=== PATIENT | female | born 1955 | race African-American/Black ===

== ENCOUNTER → 2020-07-27 | Outpatient (CLI) | payer SELFPAY ==
[2020-07-27 14:04] LABS: BASOPHILS % (AUTO) 1 % (0-1); EOSINOPHILS % (AUTO) 1 % (1-7); LYMPHOCYTES % (AUTO) 30 % (22-44); MEAN CORPUSCULAR HEMOGLOBIN 22.9 pg (27.0-34.8); MEAN CORPUSCULAR HGB CONC 31.3 g/dL (32.4-35.8); MEAN PLATELET VOLUME 9.5 fL (7.4-10.4); MONOCYTES % (AUTO) 9 % (2-9); NEUTROPHILS % (AUTO) 60 % (42-75); PLATELET COUNT 186 x10^3/uL (130-400); RED BLOOD COUNT 5.87 x10^6/uL (3.82-5.3); RED CELL DISTRIBUTION WIDTH 14.9 % (9.6-15.2)
[2020-07-27 14:09] LABS: MD NO
[2020-07-27 14:10] LABS: ALBUMIN 3.6 g/dL (3.4-5.0); ANION GAP 5 mmol/L (5-15); CALCIUM 9.1 mg/dL (8.5-10.1); CHLORIDE 108 mmol/L (98-107)
[2020-07-27 14:13] LABS: ALANINE AMINOTRANSFERASE 21 U/L (12-78); ALKALINE PHOSPHATASE 92 U/L (45-117); BILIRUBIN,TOTAL 0.3 mg/dL (0.2-1.0); CREATININE 0.76 mg/dL (0.55-1.02); TOTAL PROTEIN 7.7 g/dL (6.4-8.2)
[2020-07-27 16:07] LABS: MICROSCOPIC INDICATED
== END | disposition home or self-care (01) ==
LOC: STAR 13:00
PROVIDERS: ATTEND Orthopaedic Surgery
DX: Z01.812 Encounter for preprocedural laboratory examination (principal); Z20.828 Contact with and (suspected) exposure to other viral communicable diseases; R94.31 Abnormal electrocardiogram [ECG] [EKG]
CPT/HCPCS: 36415; 80053; 81001; 85025; 87077; 87081; 87086; 87635; 87806; 93005; G0475

== ENCOUNTER → 2020-10-10 | Outpatient (CLI) | payer MEDICAID ==
[2020-10-10 11:19] LABS: BASOPHILS % (AUTO) 1 % (0-1); EOSINOPHILS % (AUTO) 2 % (1-7); LYMPHOCYTES % (AUTO) 36 % (22-44); MEAN CORPUSCULAR HEMOGLOBIN 23.5 pg (27.0-34.8); MEAN CORPUSCULAR HGB CONC 31.3 g/dL (32.4-35.8); MEAN PLATELET VOLUME 9.5 fL (7.4-10.4); MONOCYTES % (AUTO) 9 % (2-9); NEUTROPHILS % (AUTO) 53 % (42-75); PLATELET COUNT 185 x10^3/uL (130-400); RED BLOOD COUNT 5.56 x10^6/uL (3.82-5.3); RED CELL DISTRIBUTION WIDTH 14.4 % (9.6-15.2)
[2020-10-10 11:23] LABS: MD NO
[2020-10-10 11:28] LABS: MICROSCOPIC INDICATED
[2020-10-10 11:31] LABS: ALBUMIN 3.7 g/dL (3.4-5.0); ANION GAP 4 mmol/L (5-15); CALCIUM 9.2 mg/dL (8.5-10.1); CHLORIDE 108 mmol/L (98-107)
[2020-10-10 11:35] LABS: ALANINE AMINOTRANSFERASE 25 U/L (12-78); ALKALINE PHOSPHATASE 98 U/L (45-117); BILIRUBIN,TOTAL 0.6 mg/dL (0.2-1.0); CREATININE 0.75 mg/dL (0.55-1.02)
== END | disposition home or self-care (01) ==
LOC: STAR 10:04
PROVIDERS: ATTEND Orthopaedic Surgery
DX: Z01.812 Encounter for preprocedural laboratory examination (principal); Z20.822 Contact with and (suspected) exposure to COVID-19; M16.11 Unilateral primary osteoarthritis, right hip
CPT/HCPCS: 80053; 81001; 85025; 87077; 87081; 87086; 87635; 87806; 93005; G0475

== ENCOUNTER 2020-10-16 10:07 | Observation (INO) | payer MEDICAID ==
[~2020-10-16] VITALS: Ht 165.1 cm; Wt 65.1 kg
[~2020-10-16 10:07] MED LIST: BACITRACIN 50,000 UNIT ONE; EPINEPHRINE 1 MG/ML, 1ML ONE; KETOROLAC 60 MG/2 ML ONE; ROPIvacaine/PF 0.2%, 20 ML ONE; SODIUM CHLORIDE 0.9% 50 ML ONE; TRANEXAMIC ACID 100 MG/ML, 10ML ONE; morphine SULFATE/PF 1 MG/ML, 10ML ONE
[2020-10-16] MEDS ORDERED: CHLORHEXIDINE 15 ML UDC MM ONE (10:30)
[2020-10-16] MEDS ORDERED: LACTATED RINGERS 1,000 ML IV SCH (10:30)
[2020-10-16] MEDS ORDERED: VANCOMYCIN PMX 1GM/200ML 200 ML IV ONE (10:30)
[2020-10-16] MEDS ORDERED: CHLORHEXIDINE 15 ML UDC ONE (10:39)
[2020-10-16] MEDS ORDERED: FENTANYL PF 250 MCG/5ML ONE (11:22)
[2020-10-16] MEDS ORDERED: MIDAZOLAM 1 MG/ML, 2ML ONE (11:53)
[2020-10-16] MEDS ORDERED: ACETAMINOPHEN 325 MG TABLET PO PRN ×2 (12:00→17:00)
[2020-10-16] MEDS ORDERED: OXYcodone 5 MG/5 ML ORAL.SOL UDC PO PRN (12:00)
[2020-10-16] MEDS ORDERED: ONDANSETRON 2MG/ML, 2ML IVPush PRN ×2 (12:00→17:00)
[2020-10-16] MEDS ORDERED: PROMETHAZINE 25 MG/ML, 1ML IVPush PRN (12:00)
[2020-10-16] MEDS ORDERED: hydrALAzine 20 MG/ML, 1ML IV PRN (12:00)
[2020-10-16] MEDS ORDERED: LORazepam 2 MG/ML, 1ML IVPush PRN ×2 (12:00→17:00)
[2020-10-16] MEDS ORDERED: MEPERIDINE/PF 25MG/0.5ML IVPush PRN (12:00)
[2020-10-16] MEDS ORDERED: HYDROmorphone 1 MG/ML, 1ML INJ IVPush PRN (12:00)
[2020-10-16] MEDS ORDERED: METHOCARBAMOL 1,000 MG in DEXTROSE 5% 100 ML IV PRN (12:00)
[2020-10-16] MEDS ORDERED: LABETALOL 5MG/ML, 20ML IV PRN (12:00)
[2020-10-16] MEDS ORDERED: FENTANYL PF 100 MCG/2ML IV PRN (12:00)
[2020-10-16] MEDS ORDERED: EPHEDRINE 50 MG/ML, 1ML IVPush PRN (12:00)
[2020-10-16] MEDS ORDERED: ROCURONIUM 10 MG/ML,10ML ONE (12:03)
[2020-10-16] MEDS ORDERED: DEXAMETHASONE 4 MG/ML, 1ML ONE (12:03)
[2020-10-16] MEDS ORDERED: SUCCINYLCHOLINE 20 MG/ML, 10ML ONE (12:03)
[2020-10-16] MEDS ORDERED: PROPOFOL 10 MG/ML, 20ML ONE (12:03)
[2020-10-16] MEDS ORDERED: GLYCOPYRROLATE 0.2MG/1ML, 5ML ONE (12:03)
[2020-10-16] MEDS ORDERED: CEFAZOLIN 1,000 MG ONE (12:03)
[2020-10-16] MEDS ORDERED: NEOSTIGMINE 1 MG/ML, 10ML ONE (12:03)
[2020-10-16] MEDS ORDERED: ONDANSETRON 2MG/ML, 2ML ONE (12:03)
[2020-10-16] MEDS ORDERED: LACTATED RINGERS 500 ML IVBOLUS ONE (15:30)
[2020-10-16 15:55] VITALS: BP 109/62
[2020-10-16] MEDS ORDERED: TRANEXAMIC ACID 1,000 MG in SODIUM CHLORIDE 0.9% 100 ML IV ONE (17:00)
[2020-10-16] MEDS ORDERED: ZOLPIDEM 5MG TABLET PO PRN (17:00)
[2020-10-16] MEDS ORDERED: morphine SULFATE 10 MG/ML, 1ML IVPush PRN (17:00)
[2020-10-16] MEDS ORDERED: DIPHENHYDRAMINE 50 MG CAPSULE PO PRN (17:00)
[2020-10-16] MEDS: D5%-0.45% NACL 1,000 ML IV SCH ×2 (18:36→22:00)
[2020-10-16] MEDS: CEFAZOLIN PMX 1GM/50ML 50 ML IVPB SCH (18:57)
[2020-10-16] MEDS: OXYcodone/APAP 7.5/325MG TABLET PO PRN (20:12)
[2020-10-16 20:23] VITALS: BP 119/61
[2020-10-17] MEDS: CEFAZOLIN PMX 1GM/50ML 50 ML IVPB SCH ×2 (01:48→09:37)
[2020-10-17] MEDS: D5%-0.45% NACL 1,000 ML IV SCH (03:00)
[2020-10-17 03:48] VITALS: BP 151/69
[2020-10-17 07:42] VITALS: BP 125/75
[2020-10-17] MEDS: OXYcodone/APAP 7.5/325MG TABLET PO PRN (09:41)
[2020-10-17] MEDS ORDERED: VANCOMYCIN PMX 1GM/200ML 200 ML IVPB ONE (11:00)
[2020-10-17 13:13] VITALS: BP_SYST 106; BP_SYST 99; BP_DIAS 64
[2020-10-17] MEDS ORDERED: ASPIRIN 325 MG TABLET EC PO SCH (17:00)
[2020-10-17] MEDS ORDERED: DOCUSATE 100 MG CAPSULE PO SCH (21:00)
== END 2020-10-17 14:53 | disposition home or self-care (01) ==
LOC: OUT 10:07 → 4NE 15:49 → OUT 16:00 → DCLOUNGE 10-17 14:48
PROVIDERS: ADMIT Orthopaedic Surgery; ATTEND Orthopaedic Surgery
DX: M16.11 Unilateral primary osteoarthritis, right hip (principal); M24.651 Ankylosis, right hip; Z79.899 Other long term (current) drug therapy
CPT/HCPCS: 27130; 36415; 72170; 85014; 85018; 86850; 86900; 96361; 96365; 96366; 96367; 97110; 97161; 97165; 97535; C1713; C1776; G0378; J0171; J0330; J0690; J1100; J1885; J2250; J2274; J2405; J2704; J2710; J2795; J3010; J3370; J7120

== ENCOUNTER → 2020-12-04 | Outpatient (CLI) | payer MEDICAID ==
[~2020-12-04] MED LIST changes: -BACITRACIN 50,000 UNIT ONE; -EPINEPHRINE 1 MG/ML, 1ML ONE; -KETOROLAC 60 MG/2 ML ONE; +OXYC-302 PEG; -ROPIvacaine/PF 0.2%, 20 ML ONE; -SODIUM CHLORIDE 0.9% 50 ML ONE; -TRANEXAMIC ACID 100 MG/ML, 10ML ONE; -morphine SULFATE/PF 1 MG/ML, 10ML ONE
[2020-12-04 14:12] LABS: BASOPHILS % (AUTO) 1 % (0-1); EOSINOPHILS % (AUTO) 2 % (1-7); LYMPHOCYTES % (AUTO) 19 % (22-44); MEAN CORPUSCULAR HEMOGLOBIN 23.7 pg (27.0-34.8); MEAN CORPUSCULAR HGB CONC 31.6 g/dL (32.4-35.8); MEAN PLATELET VOLUME 9.9 fL (7.4-10.4); MONOCYTES % (AUTO) 6 % (2-9); NEUTROPHILS % (AUTO) 73 % (42-75); PLATELET COUNT 227 x10^3/uL (130-400); RED BLOOD COUNT 5.43 x10^6/uL (3.82-5.3); RED CELL DISTRIBUTION WIDTH 14.3 % (9.6-15.2)
[2020-12-04 14:15] LABS: MD NO
[2020-12-04 14:21] LABS: ALANINE AMINOTRANSFERASE 16 U/L (12-78); ANION GAP 6 mmol/L (5-15); CALCIUM 9.1 mg/dL (8.5-10.1); CHLORIDE 107 mmol/L (98-107); INTERNATIONAL NORMALIZED RATIO 0.98 (0.93-1.1); PROTHROMBIN TIME 10.5 Seconds (9.6-11.5)
[2020-12-04 14:23] LABS: ALKALINE PHOSPHATASE 116 U/L (45-117); BILIRUBIN,TOTAL 0.4 mg/dL (0.2-1.0); CREATININE 0.71 mg/dL (0.55-1.02); TOTAL PROTEIN 8.1 g/dL (6.4-8.2)
== END | disposition home or self-care (01) ==
LOC: STAR 12:43
PROVIDERS: ATTEND Orthopaedic Surgery
DX: Z01.810 Encounter for preprocedural cardiovascular examination (principal); Z01.818 Encounter for other preprocedural examination; M16.12 Unilateral primary osteoarthritis, left hip; M25.552 Pain in left hip; Z20.822 Contact with and (suspected) exposure to COVID-19; Z79.01 Long term (current) use of anticoagulants
CPT/HCPCS: 36415; 80053; 83036; 85025; 85610; 85730; 87081; 87806; U0003; G0475

== ENCOUNTER 2020-12-08 11:51 | Observation (INO) | payer MEDICAID ==
[~2020-12-08] VITALS: Ht 165.1 cm; Wt 65.0 kg
[~2020-12-08 11:51] MED LIST changes: +EPINEPHRINE 1 MG/ML, 1ML ONE; +FENTANYL PF 250 MCG/5ML ONE; +KETOROLAC 60 MG/2 ML ONE; +MIDAZOLAM 1 MG/ML, 2ML ONE; +ROPIvacaine/PF 0.2%, 20 ML ONE; +SODIUM CHLORIDE 0.9% 50 ML ONE; +TRANEXAMIC ACID 100 MG/ML, 10ML ONE
[2020-12-08 12:28] VITALS: BP 127/88
[2020-12-08] MEDS ORDERED: VANCOMYCIN PER PHARMACY MC PRN (12:30)
[2020-12-08] MEDS ORDERED: GABAPENTIN 300 MG CAPSULE PO ONE (12:30)
[2020-12-08] MEDS ORDERED: CHLORHEXIDINE 15 ML UDC PO ONE (12:30)
[2020-12-08] MEDS ORDERED: LACTATED RINGERS 1,000 ML IV SCH ×2 (12:30→15:00)
[2020-12-08] MEDS ORDERED: ACETAMINOPHEN 500 MG TABLET PO ONE (12:30)
[2020-12-08] MEDS ORDERED: VANCOMYCIN 1,300 MG in SODIUM CHLORIDE 0.9% 250 ML IV ONE (13:00)
[2020-12-08] MEDS ORDERED: PHENYLEPHRINE 10 MG/ML ONE (13:15)
[2020-12-08] MEDS ORDERED: PROPOFOL 10 MG/ML, 20ML ONE (14:29)
[2020-12-08] MEDS ORDERED: ONDANSETRON 2MG/ML, 2ML ONE (14:29)
[2020-12-08] MEDS ORDERED: GLYCOPYRROLATE 0.2MG/1ML, 5ML ONE (14:29)
[2020-12-08] MEDS ORDERED: NEOSTIGMINE 1 MG/ML, 10ML ONE (14:29)
[2020-12-08] MEDS ORDERED: CEFAZOLIN 1,000 MG ONE (14:29)
[2020-12-08] MEDS ORDERED: DEXAMETHASONE 4 MG/ML, 1ML ONE (14:29)
[2020-12-08] MEDS ORDERED: ROCURONIUM 10MG/ML,5ML ONE (14:29)
[2020-12-08] MEDS ORDERED: hydrALAzine 20 MG/ML, 1ML IV PRN (14:30)
[2020-12-08] MEDS ORDERED: LABETALOL 5MG/ML, 20ML IV PRN (14:30)
[2020-12-08] MEDS ORDERED: ALBUTEROL SULFATE 2.5 MG/3 ML NPPB PRN (14:30)
[2020-12-08] MEDS ORDERED: PROMETHAZINE 25 MG/ML, 1ML IVPush PRN (14:30)
[2020-12-08] MEDS ORDERED: OXYcodone 5 MG/5 ML ORAL.SOL UDC PO PRN (14:30)
[2020-12-08] MEDS ORDERED: ACETAMINOPHEN 325 MG TABLET PO PRN (14:30)
[2020-12-08] MEDS ORDERED: HYDROmorphone 1 MG/ML, 1ML INJ IVPush PRN (14:30)
[2020-12-08] MEDS ORDERED: MEPERIDINE/PF 25MG/0.5ML IVPush PRN (14:30)
[2020-12-08] MEDS ORDERED: LORazepam 2 MG/ML, 1ML IVPush PRN (14:30)
[2020-12-08] MEDS ORDERED: ONDANSETRON 2MG/ML, 2ML IVPush PRN (15:00)
[2020-12-08] MEDS: FENTANYL PF 100 MCG/2ML IV PRN ×2 (15:00→15:25)
[2020-12-08] MEDS ORDERED: ONDANSETRON 4 MG TABLET PO PRN (15:00)
[2020-12-08] MEDS: KETOROLAC 30 MG/1 ML IV SCH ×2 (15:00→23:08)
[2020-12-08] MEDS ORDERED: HYDROmorphone 2MG TABLET PO PRN (15:00)
[2020-12-08] MEDS ORDERED: FENTANYL PF 100 MCG/2ML ONE (15:12)
[2020-12-08] MEDS ORDERED: OXYcodone 5 MG/5 ML ORAL.SOL UDC ONE (15:12)
[2020-12-08] MEDS ORDERED: KETOROLAC 30 MG/1 ML ONE (15:30)
[2020-12-08] MEDS ORDERED: DIPHENHYDRAMINE 25 MG CAPSULE PO PRN (15:30)
[2020-12-08] MEDS ORDERED: TRANEXAMIC ACID 1,000 MG in SODIUM CHLORIDE 0.9% 100 ML IVPB ONE (16:00)
[2020-12-08] MEDS: ACETAMINOPHEN 325 MG TABLET PO SCH ×2 (17:09→23:07)
[2020-12-08 20:09] VITALS: BP 117/73
[2020-12-08] MEDS: CEFAZOLIN PMX 1GM/50ML 50 ML IVPB SCH (23:08)
[2020-12-09 00:27] VITALS: BP 123/75
[2020-12-09] MEDS: HYDROmorphone 1 MG/ML, 1ML INJ IVPush PRN ×2 (00:35→22:23)
[2020-12-09] MEDS: OXYcodone IR 5MG TABLET PO PRN ×3 (00:36→22:23)
[2020-12-09] MEDS: ACETAMINOPHEN 325 MG TABLET PO SCH ×4 (01:00→22:23)
[2020-12-09 03:51] VITALS: BP 125/77
[2020-12-09] MEDS: ASPIRIN 81 MG TABLET EC PO SCH (06:29)
[2020-12-09 08:20] VITALS: BP 109/68
[2020-12-09] MEDS ORDERED: ACET325T26 PO (08:35)
[2020-12-09] MEDS ORDERED: TRAM50TA2 PO (08:35)
[2020-12-09] MEDS ORDERED: OXYC5TAB98 PO (08:35)
[2020-12-09] MEDS ORDERED: ASPI81TA45 PO (08:35)
[2020-12-09] MEDS: CEFAZOLIN PMX 1GM/50ML 50 ML IVPB SCH (10:08)
[2020-12-09] MEDS: KETOROLAC 30 MG/1 ML IV SCH (10:08)
[2020-12-09] MEDS ORDERED: VANCOMYCIN 1,300 MG in SODIUM CHLORIDE 0.9% 250 ML IV ONE (12:00)
[2020-12-09 13:00] VITALS: BP 107/55
[2020-12-09 20:21] VITALS: BP 164/87
[2020-12-09] MEDS: SODIUM CHLORIDE FLUSH 10ML SYR IVF SCH (22:29)
[2020-12-10 02:07] VITALS: BP 115/72
[2020-12-10] MEDS: ACETAMINOPHEN 325 MG TABLET PO SCH ×3 (02:59→15:19)
[2020-12-10 07:46] VITALS: BP 153/93
[2020-12-10] MEDS: OXYcodone IR 5MG TABLET PO PRN ×3 (09:58→18:12)
[2020-12-10] MEDS: ASPIRIN 81 MG TABLET EC PO SCH (09:59)
[2020-12-10] MEDS: SODIUM CHLORIDE FLUSH 10ML SYR IVF SCH (10:01)
[2020-12-10 12:46] VITALS: BP 128/90
== END 2020-12-10 18:20 | disposition home or self-care (01) ==
LOC: OUT 11:51 → ORIP 14:58 → 4NE 16:37
PROVIDERS: ADMIT Orthopaedic Surgery; ATTEND Orthopaedic Surgery
DX: M16.12 Unilateral primary osteoarthritis, left hip (principal); M87.052 Idiopathic aseptic necrosis of left femur; M89.3 Hypertrophy of bone; Z79.899 Other long term (current) drug therapy; Z79.82 Long term (current) use of aspirin
CPT/HCPCS: 27130; 36415; 72170; 86850; 86900; 96365; 96366; 96367; 96375; 96376; 97163; 97165; 97530; C1713; C1776; G0378; J0171; J0690; J1100; J1170; J1885; J2250; J2370; J2405; J2704; J2710; J2795; J3010; J3370; J7050; J7120